=== PATIENT | female | born 1975 | race Caucasian/White ===

== ENCOUNTER 2017-06-18 18:52 | Emergency (ER) | payer SELFPAY ==
[~2017-06-18] VITALS: Ht 167.6 cm; Wt 79.0 kg
[2017-06-18] MEDS ORDERED: AMPH30CA PO (19:03)
[2017-06-19] MEDS ORDERED: KETOROLAC 60MG/2ML VIAL IM STA (00:49)
[2017-06-19 03:51] VITALS: BP 115/76
== END 2017-06-19 03:53 | disposition home or self-care (01) ==
LOC: ER 21:04
DX: S16.1XXA Strain of muscle, fascia and tendon at neck level, initial encounter (principal); S83.92XA Sprain of unspecified site of left knee, initial encounter; S43.402A Unspecified sprain of left shoulder joint, initial encounter; S20.219A Contusion of unspecified front wall of thorax, initial encounter; V89.2XXA Person injured in unspecified motor-vehicle accident, traffic, initial encounter; Y93.89 Activity, other specified; Y92.89 Other specified places as the place of occurrence of the external cause; Y99.8 Other external cause status; F17.200 Nicotine dependence, unspecified, uncomplicated
CPT/HCPCS: 71010; 72040; 73030; 73562; 96372; 99284; J1885; Z7610